=== PATIENT | female | born 1950 | race Caucasian/White ===

== ENCOUNTER 2020-07-23 16:19 | Outpatient (CLI) | payer MEDICARE, SELFPAY ==
--- NOTE | ~2020-07-23 | US_ITS ---
EXAMINATION: US right upper quadrant DATE: 07/23/2020 17:21 INDICATION: Right upper quadrant pain TECHNIQUE: Multiple grayscale and Doppler ultrasound images of the abdomen were obtained. COMPARISON: 10/21/2012 FINDINGS: The head and body of the pancreas are normal. The pancreatic tail is obscured by bowel gas. The liver is normal with normal echogenicity and echotexture. No surface nodularity. Normal hepatope avila flow in the main portal vein. The gallbladder is normal with no abnormal wall thickening, pericho lecystic fluid or stones. The normal common bile duct measures 5 mm. There was no sonographic Morton sign. IMPRESSION: 1. Normal sonographic study of the gallbladder. Reviewed, dictated and finalized at location A. ION EXAMINER
== END 2020-07-23 16:20 | disposition home or self-care (01) ==
LOC: CHSLAB 16:23
PROVIDERS: PCP Internal Medicine; Visit Provider Internal Medicine
DX: R10.11 Right upper quadrant pain (principal)
CPT/HCPCS: 76705

== ENCOUNTER 2020-07-26 10:46 | Outpatient (CLI) | payer MEDICARE, SELFPAY ==
--- NOTE | ~2020-07-26 | NM_ITS ---
EXAMINATION: NM hepatobiliary w pharm DATE: 07/26/2020 13:17 INDICATION: Epigastric abdominal pain. COMPARISON: Chest on 07/23/2020 TECHNIQUE: 6 mCi Tc-99m mebrofenin (Choletec) was administered intravenously. Scintigraphic images o f the abdomen were obtained for one hour. Then, 1.5 mcg sincalide (Kinevac) IV was administered, and imaging was continued for 30 minutes. FINDINGS: There is normal clearance of radiotracer from the blood pool. There is homogeneous tracer u ptake by the liver. Activity progresses to the bowel and gallbladder. Gallbladder ejection fraction (GBEF) was 92%. Note that most patients with gallbladder dysfunction have GBEF < 35%, which overlaps with the broad normal range of 10-90%. IMPRESSION: 1. Normal hepatobiliary scintigraphy. Reviewed, dictated and finalized at location B. CTOR OF INFECTION PREVENTION
== END 2020-07-26 10:47 | disposition home or self-care (01) ==
LOC: CHSIMG 10:47
PROVIDERS: PCP Internal Medicine; Visit Provider Internal Medicine
DX: R10.11 Right upper quadrant pain (principal)
CPT/HCPCS: 78227; A9537; J2805

== ENCOUNTER → 2020-08-13 01:15 | Outpatient (CLI) | payer MEDICARE, SELFPAY ==
[2020-08-15 18:18] LABS: SARS-CoV-2 RNA PCR Negative
== END ==
PROVIDERS: PCP Internal Medicine; Visit Provider Surgery
DX: Z01.812 Encounter for preprocedural laboratory examination (principal); Z20.822 Contact with and (suspected) exposure to COVID-19
CPT/HCPCS: C9803; U0003; U0005

== ENCOUNTER 2020-08-16 00:21 | Day surgery (SDC) | payer MEDICARE, SELFPAY ==
[2020-07-31 14:24] VITALS: BMI 28.8
--- NOTE | 2020-08-15 11:12 | WPDANESEPPF ---
Anes - Initial Pre Proc Eval Procedure: Operation Date: 08/16/20 07:30 Proposed Procedures p Esophagogastroduodenoscopy - Dyllan Gaines DO Date/Time: 08/15/20 11:12 Surgeon: Dyllan Gaines DO Pre Op Diagnosis: Right Upper Quadrant Pain Patient Data Age: 69 Gender: F Height: 1.63 m Weight: 76 kg Allergies Allergy/AdvReac Type Severity Reaction Status Date / Time No Known Allergies Allergy Verified 08/16/20 06:24 Home Medications Medication Instructions Recorded Confirmed Type Immune Plus 1 wafer PO DAILY 07/31/20 07/31/20 History aspirin [Adult Low Dose Aspirin] 81 mg PO DAILY 07/31/20 07/31/20 History cholecalciferol (vitamin D3) 125 mcg PO DAILY 07/31/20 07/31/20 History [Vitamin D3] cyanocobalamin (vitamin B-12) 1,000 mcg PO DAILY 07/31/20 07/31/20 History [Vitamin B-12] escitalopram oxalate 10 mg PO HS 07/31/20 07/31/20 History pantoprazole 40 mg PO BID 07/31/20 07/31/20 History pravastatin 20 mg PO HS 07/31/20 07/31/20 History zolpidem 5 mg PO HS 07/31/20 07/31/20 History Patient hx anesthesia problems: none Family hx anesthesia problems: none PMFSH Past Medical History Medical History (Updated 08/15/20 @ 11:14 by Cristian Cruz MD) Anxiety Breast CA Hypercholesterolemia Social History Social History (System 07/30/20 @ 14:39 by Debby Rojo) Smoking status: Never smoker Alcohol intake: never Substance use: never Substance use type: does not use Living arrangements: with family Spiritual care concerns: No Anes - Eval Final PreProcedure Day of Procedure 08/15/20 11:12 Patient weight: overweight Heart: regular rate and rhythm Lungs: clear to auscultation and normal air movement Airway: Mallampati scale class II Neurological: alert and oriented Last oral intake: >/= 8 hours ASA classification: III Emergent: no Anesthetic plan: proceed Anesthesia type and monitoring: general GIVS Informed Consent: The patient's anesthetic plan and its attendant risks and benefits were discussed with the patient/family/POA. Questions were solicited and answers provided to the satisfaction of the patient/family/POA.
[2020-08-16 06:25] VITALS: BP 152/89; PULSE 76; RESP 20; TEMP 36.6; O2SAT 95; BMI 29.4
[2020-08-16] MEDS: LACTATED RINGERS 1,000 ML 150 ML IV CONT (06:42)
--- NOTE | 2020-08-16 07:28 | PM.IMHP ---
H&P: HPI History of Present Illness Date/Time: 08/16/20 07:28 Chief Complaint: epigastric pain Narrative: Cari Galvin is a 69 year old female who presents with epigastric pain, bloating, and belching for several years. She thought it might be her gallbladder but u/s was normal. No certain foods cause this. Review of Systems Review of Systems: All systems reviewed & are unremarkable except as noted in HPI and below Constitutional: Constitutional: Denies chills, Denies fever(s), Denies headache(s) and Denies weight loss Eyes: Eyes: Denies change in vision ENT: Denies dizziness, Denies headache(s), Denies neck mass and Denies throat swelling Cardiovascular: Cardiovascular: Denies chest pain, Denies lightheadedness and Denies dyspnea Respiratory: Respiratory: Denies cough, Denies dyspnea and Denies wheezing Gastrointestinal: Gastrointestinal: Denies abdominal pain, Denies change in bowel habits, Denies nausea and Denies vomiting Genitourinary: Genitourinary: Denies hematuria and Denies dysuria Musculoskeletal: Musculoskeletal: Reports as per HPI Integumentary/Breasts: Skin/Breast: Reports as per HPI Neurologic: Denies dizziness and Denies headache(s) Allergic/Immunologic: Allergic/Immunologic: Denies throat swelling and Denies wheezing PMFSH Past Medical History Medical History Anxiety Breast CA Hypercholesterolemia Social History Social History Smoking status: Never smoker Alcohol intake: never Substance use: never Substance use type: does not use Living arrangements: with family Spiritual care concerns: No Meds Home Medications and Allergies Home Medications Medication Instructions Recorded Confirmed Type Immune Plus 1 wafer PO DAILY 07/31/20 07/31/20 History aspirin [Adult Low Dose Aspirin] 81 mg PO DAILY 07/31/20 07/31/20 History cholecalciferol (vitamin D3) 125 mcg PO DAILY 07/31/20 07/31/20 History [Vitamin D3] cyanocobalamin (vitamin B-12) 1,000 mcg PO DAILY 07/31/20 07/31/20 History [Vitamin B-12] escitalopram oxalate 10 mg PO HS 07/31/20 07/31/20 History pantoprazole 40 mg PO BID 07/31/20 07/31/20 History pravastatin 20 mg PO HS 07/31/20 07/31/20 History zolpidem 5 mg PO HS 07/31/20 07/31/20 History Allergies Allergy/AdvReac Type Severity Reaction Status Date / Time No Known Allergies Allergy Verified 08/16/20 06:24 Vital Signs Vital Signs - 24 hr 08/16/20 06:25 Temperature 36.6 C Pulse Rate 76 Respiratory Rate 20 Blood Pressure 152/89 H Pulse Oximetry 95 Exam Const: General: no acute distress and alert Orientation/consciousness: patient oriented x3 HENMT: Head: normocephalic and atraumatic Ears: hearing grossly normal bilaterally General nose exam: Normal nares present Mouth: Yes Normal oral and palatal mucosa present Eyes: Periorbital: periorbital findings normal Sclera: sclerae normal EOM: EOMs intact bilaterally Neck: Neck: normal visual inspection, no lymphadenopathy and trachea midline Chest: Chest palpation & inspection: normal inspection of the chest Resp: Effort & Inspection: normal respiratory effort Auscultation: clear to auscultation bilaterally Cardio: Jugular venous distension: no JVD Rate: regular rate Rhythm: regular rhythm Heart sounds: S1 normal heart sound present and S2 normal heart sound present Peripheral pulses: Peripheral pulses 2+ throughout GI: Inspection: normal to inspection GI Palp: Yes Soft to palpation, No Tenderness to palpation present (GI), No Guarding due to palpation present (GI) and No Rebound tenderness present Percussion: Yes normal to percussion Auscultation: normal bowel sounds : General: Yes no CVA tenderness Back/Spine/Pelvis: Back: no CVA tenderness Neuro: General: patient oriented x3, no focal motor deficits and CN's II-XI intact bilaterally Cognition (Neuro):
[2020-08-16 07:48] VITALS: BP 143/89; PULSE 70; RESP 20; O2SAT 96
[2020-08-16 07:58] VITALS: BP 132/81; PULSE 66; RESP 17; O2SAT 95
[2020-08-16 08:08] VITALS: BP 142/88; PULSE 68; RESP 20; O2SAT 95
== END 2020-08-16 08:15 | disposition home or self-care (01) ==
PROVIDERS: PCP Internal Medicine; Visit Provider Surgery
PROC: 0DJ08ZZ Inspection of Upper Intestinal Tract, Via Natural or Artificial Opening Endoscopic (ICD-10-PCS; CPT 43235; principal; 2020-08-16 07:30)
DX: R10.13 Epigastric pain (principal); K44.9 Diaphragmatic hernia without obstruction or gangrene; K31.7 Polyp of stomach and duodenum; E78.00 Pure hypercholesterolemia, unspecified; F41.9 Anxiety disorder, unspecified; Z85.3 Personal history of malignant neoplasm of breast; Z79.82 Long term (current) use of aspirin
CPT/HCPCS: 43239; 87081; 88305; 88342; C9803; J2704; J7120; U0003; U0005

== ENCOUNTER 2021-03-14 14:48 | Outpatient (CLI) | payer MEDICARE, SELFPAY ==
[2021-03-14 15:26] LABS: SARS-CoV-2 Ag Negative (Negative)
== END 2021-03-14 14:49 | disposition home or self-care (01) ==
LOC: CHSLAB 14:51
PROVIDERS: PCP Internal Medicine; Visit Provider Internal Medicine
DX: J02.9 Acute pharyngitis, unspecified (principal); R05 Cough; R53.83 Other fatigue; Z20.822 Contact with and (suspected) exposure to COVID-19
CPT/HCPCS: 87081; 87426; 87880; C9803

== ENCOUNTER 2021-08-13 14:39 | Outpatient (CLI) | payer MEDICARE, SELFPAY ==
--- NOTE | ~2021-08-13 | XR_ITS ---
EXAMINATION: XR chest 2V DATE: 08/13/2021 15:18 INDICATION: Cough and shortness of breath. Tachycardia. Recent COVID-19 pneumonia. TECHNIQUE: Frontal and lateral views of the chest were obtained. COMPARISON: None. FINDINGS: There are mild airspace opacities in left lower lung zone. A calcified right lung nodule is consistent with old granulomatous disease. There is mild scarring at the lung apices. No pleural eff usion or pneumothorax. The heart size is normal. IMPRESSION: 1. Mild airspace opacities in left lower lung zone, consistent with atelectasis/scarring versus pneum onia. Mild scarring at the lung apices. Reviewed, dictated and finalized at location A. ER FURNACE IMPRESSION: 1. Mild airspace opacities in left lower lung zone, consistent with atelectasis /scarring versus pneumonia. Mild scarring at the lung apices.
[2021-08-13 15:10] LABS: Basophils Absolute Auto 0.04 K/mm3 (0.00-0.10); Basophils Percent Auto 0.7 % (0.0-1.0); Eosinophils Absolute Auto 0.34 K/mm3 (0.02-0.50); Eosinophils Percent Auto 6.2 % (1.0-6.0); Hematocrit 42.1 % (35.0-42.0); Hemoglobin 13.8 g/dL (11.7-13.8); Immature Granulocyte Absolute 0.04 K/mm3 (0.00-0.00); Immature Granulocyte Percent A 0.7 % (0.0-0.0); Lymphocytes Absolute Auto 1.99 K/mm3 (1.10-4.50); Lymphocytes Percent Auto 36.3 % (18.0-42.0); Mean Corpuscular HGB Conc 32.8 g/dL (32.0-36.0); Mean Corpuscular Hemoglobin 29.4 pg (27.0-31.0); Mean Corpuscular Volume 89.6 fL (78.0-102.0); Mean Platelet Volume 9.8 fl (9.2-11.8); Monocytes Absolute Auto 0.46 K/mm3 (0.10-0.90); Monocytes Percent Auto 8.4 % (2.0-11.0); Neutrophils Absolute Auto 2.6 K/mm3 (1.7-7.2); Neutrophils Percent Auto 47.7 % (50.0-70.0); Platelet Count Result 216 K/mm3 (150-420); Red Cell Distribution Width 12.8 % (11.6-14.4); White Blood Count 5.5 K/mm3 (4.8-10.8)
[2021-08-13 16:02] LABS: Alanine Aminotransferase 26 U/L (14-59); Albumin Level 4.1 g/dL (3.4-5.0); Alkaline Phosphatase 74 U/L (46-116); Anion Gap 12 mmol/L (8-16); Aspartate Amino Transferase 19 U/L (15-37); Bilirubin,Total 0.3 mg/dL (0.00-1.00); Blood Urea Nitrogen 15 mg/dL (7-18); Calcium 9.3 mg/dL (8.5-10.1); Carbon Dioxide 27 mmol/L (21-32); Chloride 102 mmol/L (98-108); Estimated Glomerular Filt Rate > 60; Free T3 2.52 pg/mL (2.18-3.98); Free T4 Free Thyroxine 0.73 ng/dL (0.76-1.46); Glucose 86 mg/dL (70-99); Osmolality Calculated 291 mOsm/kg (285-295); Sodium 141 mmol/L (136-145); Thyroid Stimulating Hormone 3.44 uIU/mL (0.36-3.74); Total Protein 7.5 g/dL (6.4-8.2)
== END 2021-08-13 14:40 | disposition home or self-care (01) ==
LOC: CHSLAB 14:45
PROVIDERS: PCP Internal Medicine; Visit Provider Internal Medicine
DX: R00.0 Tachycardia, unspecified (principal); I65.23 Occlusion and stenosis of bilateral carotid arteries; R05.9 Cough, unspecified; R53.83 Other fatigue
CPT/HCPCS: 36415; 71046; 80053; 84439; 84443; 84481; 85025

== ENCOUNTER 2021-08-14 13:13 | Outpatient (CLI) | payer MEDICARE, SELFPAY ==
--- NOTE | ~2021-08-14 | US_ITS ---
EXAMINATION: US carotid duplex BI EXAM DATE: 08/14/2021 13:33 INDICATION: Carotid Stenosis . TECHNIQUE: Grayscale, color and pulsed Doppler images of the cervical carotid arteries were obtained . The degree of vessel stenosis is placed in one of the following categories: normal, <50% stenosis, 50-69% stenosis, >=70% stenosis but less than near-occlusion, near-occlusion, or occlusion. Note that percent stenosis relative to normal distal artery lumen diameter is indirectly measured from velocit y measurements as described by Melquiades, et al. Radiology 2003; [id number]. There is no prior study fo r comparison. FINDINGS: RIGHT SIDE: Right common carotid artery peak systolic velocity (PSV in cm/s): 83 Right bulb/internal carotid artery peak systolic velocity (PSV in cm/s): 92 Right internal carotid artery end diastolic velocity (EDV in cm/s): 32 Right ICA/CCA peak systolic ratio: 1.1 Right external carotid artery peak systolic velocity (PSV in cm/s): 83 Right vertebral artery antegrade flow: yes There is no focal plaque identified. LEFT SIDE: Left common carotid artery peak systolic velocity (PSV in cm/s): 87 Left bulb/internal carotid artery peak systolic velocity (PSV in cm/s): 71 Left internal carotid artery end diastolic velocity (EDV in cm/s): 26 Left ICA/CCA peak systolic ratio: 0.8 Left external carotid artery peak systolic velocity (PSV in cm/s): 102 Left vertebral artery antegrade flow: yes There is mild carotid bulb plaque. Velocity and Doppler waveforms in the common and internal carotid arteries is normal. IMPRESSION: 1. Normal right internal carotid artery. 2. Less than 50 percent stenosis in the left internal carotid artery. Reviewed, dictated and finalized at location B. FLEET MANAGER
== END 2021-08-14 13:14 | disposition home or self-care (01) ==
LOC: CHSIMG 13:16
PROVIDERS: PCP Internal Medicine; Visit Provider Internal Medicine
DX: I65.23 Occlusion and stenosis of bilateral carotid arteries (principal)
CPT/HCPCS: 93880

== ENCOUNTER 2021-09-10 11:16 | Outpatient (CLI) | payer MEDICARE, SELFPAY ==
--- NOTE | ~2021-09-10 | XR_ITS ---
EXAMINATION: XR chest 2V DATE: 09/10/2021 11:29 INDICATION: Cough. Upper chest pain. TECHNIQUE: Frontal and lateral views of the chest were obtained. COMPARISON: Chest 2 views 08/13/2021 FINDINGS: There is mild scarring at the lung apices. There is a 10 mm nodule in right upper lobe. No pleural effusion or pneumothorax. The heart size is normal. IMPRESSION: 1. 10 mm nodule in right upper lobe, which may be granulomatous disease or malignancy. Noncontrast est CT is recommended. Reviewed, dictated and finalized at location A. ERCIAL HOUSEKEEPER IMPRESSION: 1. 10 mm nodule in right upper lobe, which may be granulomatous disease or john paul gnancy. Noncontrast chest CT is recommended.
== END 2021-09-10 11:17 | disposition home or self-care (01) ==
LOC: CHSIMG 11:17
PROVIDERS: PCP Internal Medicine; Visit Provider Internal Medicine
DX: R05.9 Cough, unspecified (principal); Z86.16 Personal history of COVID-19
CPT/HCPCS: 71046

== ENCOUNTER 2021-09-16 10:47 | Outpatient (CLI) | payer MEDICARE, SELFPAY ==
--- NOTE | ~2021-09-16 | CT_ITS ---
EXAMINATION:CT diagnostic chest wo con DATE: 09/16/2021 11:10 INDICATION: Pulmonary nodule. Abnormal chest radiograph. TECHNIQUE: Computed tomography (CT) of the chest was performed without intravenous contrast. Automate d exposure control and iterative reconstruction technique were employed. The dose-length product (DLP ) was 115.88 mGy-cm. COMPARISON: Chest 2 views 09/10/2021 FINDINGS: Calcified left lung nodules and calcified left hilar lymph nodes are consistent with old gr anulomatous disease. There is mild peripheral scarring in the upper lobes. There is a 2.6 x 0.7 x 0.8 cm part-solid peripheral nodule in right upper lobe correlating with the chest radiograph abnormalit y. No pleural effusion. The heart size is normal. There are coronary artery calcifications. No perica rdial effusion. Calcifications in the liver and spleen are consistent with old granulomatous disease. There is a 2.2 cm cyst in left kidney. There is moderate thoracic spondylosis. IMPRESSION: 1. Peripheral part-solid nodule in right lung upper lobe correlating with the chest radiograph abnorm ality, which may be scarring or less likely malignancy. Consider PET/CT or 3-month follow-up noncontr ast low-dose chest CT. Reviewed, dictated and finalized at location A. IMPRESSION: 1. Peripheral part-solid nodule in right lung upper lobe correlating with the c hest radiograph abnormality, which may be scarring or less likely malignancy. C onsider PET/CT or 3-month follow-up noncontrast low-dose chest CT.
== END 2021-09-16 10:48 | disposition home or self-care (01) ==
LOC: CHSIMG 10:48
PROVIDERS: PCP Internal Medicine; Visit Provider Internal Medicine
DX: R91.1 Solitary pulmonary nodule (principal)
CPT/HCPCS: 71250

== ENCOUNTER 2021-12-05 10:31 | Outpatient (CLI) | payer MEDICARE, SELFPAY ==
--- NOTE | ~2021-12-05 | CT_ITS ---
EXAMINATION: CT diagnostic chest wo con DATE: 12/05/2021 10:49 INDICATION: Lung nodule TECHNIQUE: Computed tomography (CT) of the chest was performed without intravenous contrast. The dose -length product (DLP) was 137.89 mGy-cm. Automated exposure control and iterative reconstruction [employer] were employed. COMPARISON: 09/16/2021 FINDINGS: The previously described pleural-based, part solid nodule of the right upper lobe is stable . No new pulmonary nodules are identified. The lungs are free of acute opacities. There is no pleural effusion or pneumothorax. No pathologically enlarged thoracic lymph nodes are identified. The heart size is normal. Calcified coronary artery atherosclerosis is noted. Calcified pulmonary nodules and c alcified left hilar lymph nodes are consistent with old granulomatous disease. Cysts of the partially imaged left kidney measure up to 3.2 cm. There is moderate thoracic spondylosis. IMPRESSION: 1. Stable pleural-based, part solid nodule of the right upper lobe, most consistent with scarring. Reviewed, dictated and finalized at location F. IMPRESSION: 1. Stable pleural-based, part solid nodule of the right upper lobe, most consis tent with scarring.
== END 2021-12-05 10:32 | disposition home or self-care (01) ==
LOC: CHSIMG 10:32
PROVIDERS: PCP Internal Medicine; Visit Provider Internal Medicine
DX: R91.1 Solitary pulmonary nodule (principal)
CPT/HCPCS: 71250

== ENCOUNTER 2022-07-17 12:41 | Outpatient (CLI) | payer MEDICARE, SELFPAY ==
--- NOTE | ~2022-07-17 | CT_ITS ---
EXAMINATION: CT diagnostic chest wo con DATE: 07/17/2022 13:17 INDICATION: Pulmonary nodule TECHNIQUE: Computed tomography (CT) of the chest was performed without intravenous contrast. The dose -length product (DLP) was 200.19 mGy-cm. Automated exposure control and iterative reconstruction tech nique were employed. COMPARISON: 12/05/2021, 09/16/2021 FINDINGS: Again seen is a stable, pleural-based, part solid nodule of the right upper lobe. No interv al change is identified. There are no new pulmonary nodules. The lungs are free of acute opacities. N o pleural effusion or pneumothorax. No pathologically enlarged thoracic lymph nodes are identified. T he heart size is normal. Calcified pulmonary nodules and calcified left hilar lymph nodes are consist ent with old granulomatous disease. There is calcified coronary artery atherosclerosis. Punctate calc ifications in an otherwise normal spleen likely represent healed granulomatous disease. There is mode rate thoracic spondylosis. IMPRESSION: 1. Persistent stable, pleural-based, part solid nodule of the right upper lobe, most consistent with scarring. No new findings. Reviewed, dictated and finalized at location L. TANKER DRIVER
== END 2022-07-17 12:42 | disposition home or self-care (01) ==
LOC: CHSIMG 12:42
PROVIDERS: PCP Internal Medicine; Visit Provider Internal Medicine
DX: R91.1 Solitary pulmonary nodule (principal)
CPT/HCPCS: 71250

== ENCOUNTER 2022-08-22 10:13 | Outpatient (CLI) | payer MEDICARE, SELFPAY ==
--- NOTE | ~2022-08-22 | DEXA_ITS ---
Bone Density Report Name: ROBERT VERONICA Age: 71 Sex: Female Ethnicity: White Date of : 1950 Indication: postmenopausal; screening for osteoporosis; parental hip fracture; cancer; hysterectomy; Referring Provider: Jodie Caruso Study: Bone densitometry was performed. Exam Date: August 22, 2022 Accession number: [id number] Bone Density: Region BMD T-score Z-score Classification AP Spine(L1-L4) 0.888 -1.4 0.7 Osteopenia Femoral Neck (Left) 0.837 -0.1 1.7 Normal Total Hip (Left) 0.961 0.2 1.7 Normal Femoral Neck (Right) 0.831 -0.2 1.6 Normal Total Hip (Right) 0.964 0.2 1.7 Normal Femoral Neck Mean 0.834 -0.1 1.7 Normal Total Hip Mean 0.963 0.2 1.7 Normal World Health Organization criteria for BMD impression classify patients as: Normal (T-score at or above -1.0), Osteopenia (T-score between -1.0 and -2.5), or Osteoporosis (T-score at or below -2.5). 10-year Fracture Risk(1): Major Osteoporotic Fracture 11% Hip Fracture 0.8% Reported Risk Factors: [place] (), Neck BMD=0.831, BMI=31.5, parental fracture (1) FRAX(R) Version 3.08. Fracture probability calculated for an untreated patient. Fracture probability may be lower if the patient has received treatment. Clinical Information Provided by Patient: Parent has had a hip fracture Has used the following medications: Vitamin D, multivitimin Has the following medical conditions: Cancer, Hysterectomy Menopause Age: 49 No regular weight bearing exercise Drinks caffeinated beverages Onset of menses at age 14 Number of children 2 Impression: The patient has low bone mass, based on the Total Spine T-score. The patient has risk factors, including: parental hip fracture. Discussion: BONE DENSITY IS LOW AT ONE OR MORE SKELETAL SITES. This patient's lowest T-score is low at one or more skeletal sites. It meets the World Health Organization's (WHO) criteria for ?low bone mass? (T-score between -1.0 and -2.5). The patient's 10-year risk of fracture as calculated by FRAX is less than the threshold where pharmacological therapy is recommended by the National Osteoporosis Foundation (NOF). However, all treatment decisions require clinical judgment and consideration of individual patient factors, including patient preferences, comorbidities, previous drug use, risk factors not captured in the FRAX model (e.g., frailty, falls, vitamin D deficiency, increased bone turnover, interval significant decline in bone density) and possible under or overestimation of fracture risk by FRAX. The patient should follow a healthful lifestyle (good nutrition with adequate calcium and vitamin D, and appropriate weight-bearing exercise). Follow-Up: Consider repeating this study in 2 to 3 years to reassess this patient
== END 2022-08-22 10:14 | disposition home or self-care (01) ==
LOC: CHSIMG 10:14
PROVIDERS: PCP Internal Medicine; Visit Provider Internal Medicine
DX: Z78.0 Asymptomatic menopausal state (principal); M85.88 Other specified disorders of bone density and structure, other site
CPT/HCPCS: 77080

== ENCOUNTER 2023-08-11 08:21 | Outpatient (CLI) | payer MEDICARE, SELFPAY ==
--- NOTE | ~2023-08-11 | US_ITS ---
EXAMINATION: US carotid duplex BI DATE: 08/11/2023 08:53 INDICATION: Bilateral carotid artery stenosis TECHNIQUE: Grayscale, color Doppler, and pulsed Doppler images of the cervical carotid arteries were obtained. The degree of vessel stenosis is placed in one of the following categories: normal, <50%, 5 0-69%, >=70% but less than near-occlusion, near-occlusion, or total occlusion. Note that percent sten osis relative to normal distal artery lumen diameter is indirectly measured from velocity measurement s as described by Melquiades, et al. Radiology 2003; [id number]. COMPARISON: None. FINDINGS: RIGHT: The right common carotid artery (CCA) peak systolic velocity (PSV) is 118 cm/s. The right internal ca rotid artery (ICA) PSV is 94 cm/s. The right ICA end-diastolic velocity (EDV) is 25 cm/s. The right I CA/CCA PSV ratio is 0.8. Grayscale and color Doppler images yield an estimate of <50% diameter reduct ion from plaque in the ICA. The external carotid artery (ECA) PSV is 97 cm/s. There is antegrade flow in the right vertebral artery. LEFT: The left CCA PSV is 116 cm/s. The left ICA PSV is 127 cm/s. The left ICA EDV is 44 cm/s. The left ICA /CCA PSV ratio is 1.1. Grayscale and color Doppler images including secondary Doppler criteria yield an estimate of <50% diameter reduction from plaque in the ICA. The ECA PSV is 82 cm/s. There is anteg rade flow in the left vertebral artery. IMPRESSION: 1. <50% stenosis in the right internal carotid artery. 2. <50% stenosis in the left internal carotid artery. Reviewed, dictated and finalized at location A. AND CROWN PRESSER
== END 2023-08-11 08:22 | disposition home or self-care (01) ==
LOC: CHSIMG 08:23
PROVIDERS: PCP Internal Medicine; Visit Provider Internal Medicine
DX: I65.23 Occlusion and stenosis of bilateral carotid arteries (principal)
CPT/HCPCS: 93880

== ENCOUNTER 2024-08-16 05:10 | Observation (INO) | payer MEDICARE, SELFPAY ==
--- NOTE | ~2024-08-16 | CT_ITS ---
Noncontrast CT scan of the cervical spine Technique: Multiple contiguous axial [address] images of the cervical spine were obtained and rec onstructed in 2D sagittal and coronal planes on the acquisition scanner. Dose reduction technique was used on this scan by utilizing automated exposure control, adjustment of the mA and/or kV according to patient size. The dose-length product (DLP) was 863.95 mGy-cm. Clinical History: Pain Findings: No fractures or dislocations. There is reversal normal cervical lordosis. There is severe degenerative disc narrowing at C5-C6 and C6-C7. There is mild degenerative disc narrowing the upper c ervical spine. There is extensive facet arthropathy bilaterally. There is fusion of the bilateral C2- C3 facet joints. There is bilateral neural foraminal narrowing at C3-C4. There is probable bilateral neural foraminal narrowing at C4-C5. There is bilateral neural foraminal narrowing at C5-C6 and C6-C7 . No prevertebral soft tissue swelling. Impression: No fracture or subluxation of the cervical spine. Moderate degenerative spondylosis, as above. Reviewed, dictated and finalized at [facility]. HT ANALYST Impression: No fracture or subluxation of the cervical spine. Moderate degenerative spondylosis, as above.
--- NOTE | ~2024-08-16 | CT_ITS ---
EXAMINATION: CT brain wo con DATE: 08/17/2024 09:03 INDICATION: Headache. Dizziness. TECHNIQUE: Computed tomography (CT) of the head was performed without intravenous contrast. The mA wa s adjusted according to patient size. Iterative reconstruction technique was employed. The dose-lengt h product was 605.33 mGy-cm. COMPARISON: Head CT 08/16/2024 FINDINGS: There is no intracranial hemorrhage, acute infarction, or abnormal intracranial mass lesion . The ventricles are normal in size. There is a left posterior scalp hematoma. The orbits are normal. There is mild mucosal thickening in the paranasal sinuses. The mastoid air cells are normal. IMPRESSION: 1. Normal brain. Reviewed, dictated and finalized at location A. WORKER IMPRESSION: 1. Normal brain.
--- NOTE | ~2024-08-16 | CT_ITS ---
Non-contrast Head CT History: Head injury Technique: Axial non-contrast imaging of the brain was performed. Dose reduction technique was used on this scan by utilizing automated exposure control and iterative reconstruction technique. The dose -length product (DLP) was 605.33 mGy-cm. Findings: There is no evidence of intracranial hemorrhage, mass lesion, or acute infarct. Brain par enchyma appears normal. The ventricles and subarachnoid spaces are normal in size. The calvarium ap pears normal. The visualized paranasal sinuses and mastoid air cells are clear. There is soft tissue swelling/hematoma in the left parietal scalp. Impression: No intracranial abnormality seen. Soft tissue swelling/hematoma in the left parietal scalp. Reviewed, dictated and finalized at [facility]. ET CLOSER Impression: No intracranial abnormality seen. Soft tissue swelling/hematoma in the left parietal scalp.
--- OUTSIDE RECORDS SUMMARY | 2024-08-16 05:14 | XMS_ITS | Clinical Summary ---
Author Organization [facility] Address [address] [place] [address] Care Team Providers Care Coal Sampler Name Role Phone Jodie Caruso MD Primary Care Provider + [phone] Montserrat Ernandez NP Unavailable [phone] Allergies No known active allergies Medications zolpidem (AMBIEN) 10 mg tabletIndicatio ns:Sleep-Onset Insomnia TAKE 1 TABLET AT BEDTIME NEEDED FOR SLEEP. Active aspirin 81 mg tablet daily. Active cyanocobalamin, vitamin B-12, 1,000 mcg tablet extended release daily. Active ascorbic acid (VITAMIN C) 500 mg tablet,chewable daily. Acti ve multivitamin tabletIndicatio ns:Vitamin Deficiency Prevention Active pravastatin (PRAVACHOL) 20 mg tablet daily. Active escitalopram (LEXAPRO) 10 mg tablet daily. Active cholecalciferol (VITAMIN D-3) 25 mcg (1,000 unit) tablet Take 1,000 Units by mouth daily Active carvediloL (COREG) 6.25 mg tablet Take 3.125 mg by mouth 2 (two) times a day with meals Active Active Problems Problem Noted Date Diagnosed Date Pulmonary nodule, right 10/01/2021 Encounter for screening for malignant neoplasm o f breast 05/19/2019 ER+ (estrogen receptor positive status) 05/12/20 18 Primary malignant neoplasm o f upper outer quadrant of female breast 05/14/2017 Osteopenia 05/14/2017 Resolved Problems Problem Noted Date Diagnosed Date Resolved Date Encounter for monitoring taylor matase inhibitor therapy 05/12/2018 05/13/2018 Surgical History Surgery Date Site/Laterality Comments APPENDECTOMY 07/06/1963 - 07/05/1964 TONSILLECTOMY 07/06/1970 - 07/05/1971 TUBAL LIGATION 07/06/1977 - 07/05/1978 TOTAL ABDOMINAL HYSTERECTOMY W/ BILATERAL SALPINGOOPHORECTOMY 07/06/2000 - 07/05/2001 found to have benign ovarian cyst BREAST LUMPECTOMY 2000 Left AXILLARY NODE DISSECTION 07/06/2000 - 07/05/2001 Left Medical History Medical History Date Comments Left Breast cancer 09/21/2000 Hypertension Primary insomnia Elevated blood pressure read ing without diagnosis of hypertension Impaired fasting glucose Vitamin D deficiency Mixed hyperlipidemia Unspecified chronic gastritis without bleeding Occlusion and stenosis of left carotid artery Solitary pulmonary nodule Dysuria Shingles 06/2020 Left flank Anxiety Covid-19 Family History Medical History Relation Name Comments COPD Father Dementia Father Diabetes type II Father Heart disease Father age 92 Asthma Mother age 32 Pneumonia Paternal Grandfather ag e 92 Heart failure Paternal Grandmother a ge 88 Relation Name Status Comments Father Mother Paternal Grandfather Paternal Grandmother Social History Tobacco Use Types Packs/Day Years Used Date Smoking Tobacco: Never Smokeless Tobacco: Never Alcohol Use Standard Drinks/Week Comments Yes 6 (1 standard drink = 0.6 oz pur e alcohol) per week Personal Safety Answer Date Recorded Getting School Help Needed Not on file 06/20 Comments Unknown Sex and Gender Information Value Date Recorded Sex Assigned at Not on file 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 She experienced a natural menopause in 2000. She has never used oral contraceptives, hormone replacement therapy, or fertility medications. 2, para 2. She has 2 sons, first term at age 20. She did not breast feed. She has not had a Pap smear in several years. Last Filed Vital Signs Vital Sign Reading Time Taken Comments Blood Pressure 141/85 10/02/2021 1:13 PM CDT Pulse 73 10/02/2021 1:13 PM CDT Temperature 36.1 C (96.9 F) 10/02/2021 1:13 PM CDT Respiratory Rate 18 10/02/2021 1:13 PM CDT Oxygen Saturation 97% 10/02/2021 1:13 PM CDT room air Inhaled Oxygen Concentration - - Weight 79.8 kg (176 lb) 10/02/2021 1:13 PM CDT Height 162.6 cm (5' 4 ) 10/02/2021 1:13 PM CDT Body Mass Index 30.21 10/02/2021 1:13 PM CDT Plan of Treatment Health Maintenance Due Date Last Done Comments Colon Cancer Screening-Colonoscopy 1950 Depression Screening 1952 Fall Risk Assessment 1950 Hepatitis C Screening 1950 Osteoporosis Screening-Bone Density Scan 1952 Hepatitis B Screening 1970 Zoster Vaccine (2 of 3) 05/24/2015 03/29/2015 Well Visit 65+ 2017 DTaP/Tdap/Td Vaccine (2 - Td or Tdap) 05/16/2023 05/16/2013 Influenza Vaccine (#1) 2024 9, 05/07/2018, 05/13/2017, Additional history exists Breast Cancer Screening-Mammogram 10/20/2024 10/21/2023, 10/06/2022, 09/24/2021, Additional history exists Pneumococcal vaccine 65+ Completed 08/05/2018, 01/04 Procedures Procedure Name Priority Date/Time Associated Diagnosis Comments SCREENING MAMMOGRAM BILATERAL W JEVON Schedule Routine, Read Routine (OP Routine) 10/21/2023 10:22 AM CDT Screening mammogram, encounter for from Last 3 Months or Most Recently Relevant to Health Maintenance Results * Screening Mammogram Bilateral W Jevon (10/21/2023 10:22 AM CDT) Anatomical Region Laterality Modality Breast Bilateral Mammography Narrative 10/22/2023 11:43 AM CDT Mammogram Technique: Bilateral Digital Breast Tomosynthesis, Bilateral C-view 2D Screening mammogram. Views obtained: bilateral craniocaudal and bilateral mediolateral oblique. Computer Aided Detection was performed. Mammogram Findings: The present examination has been compared to prior imaging studies performed at [facility] on 08/10/2020, 09/24/2021 and 10/06/2022. There are scattered areas of fibroglandular density. There are post breast conservation therapy changes in the left breast. Impression: Post breast conservation therapy changes in the left breast are benign. Annual screening mammography is recommended. OVERALL FINAL ASSESSMENT: BI-RADS CATEGORY 2: Benign. Procedure Note Zulema Lehman MD - 10/22/2023 Mammogram Technique: Bilateral Digital Breast Tomosynthesis, Bilateral C-view 2D Screening mammogram. Views obtained: bilateral craniocaudal and bilateral mediolateral oblique. Computer Aided Detection was performed. Mammogram Findings: The present examination has been compared to prior imaging studies performed at [facility] on 08/10/2020, 09/24/2021 and 10/06/2022. There are scattered areas of fibroglandular density. There are post breast conservation therapy changes in the left breast. Impression: Post breast conservation therapy changes in the left breast are benign. Annual screening mammography is recommended. OVERALL FINAL ASSESSMENT: BI-RADS CATEGORY 2: Benign. us Self Screening Mammogram IMG MAMMO PROCEDURES Fi nal Result from Last 3 Months or Most Recently Relevant to Health Maintenance Insurance [facility] MEDICARE Address: [facility] [id number] [place] [address] A[employer] MEDICARE AETNA MEDICARE Care Teams Coal Sampler Relationship Specialty Start Date End Date Jodie Caruso MD [address] [place] [address] PCP - General Internal Medicine 11/11/17 Montserrat Ernandez NP [id number] [facility] IM MEDICAL ONCOLOGY, [address] [place] [address] Nurse Practitioner Medical Oncology 08/10/20
--- OUTSIDE RECORDS SUMMARY | 2024-08-16 05:14 | XMS_ITS | Referral Summary ---
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 There are [...] compared to prior imaging studies performed at [facility] on 08/10/2020, 09/24/2021 and 10/06/2022. There are [...] Most Recently Relevant to Health Maintenance Insurance T MEDICARE T MEDICARE Care Teams Leather Belt Shaper Relationship Specialty Start Date End Date Jodie Caruso MD [address] [place] [address] PCP - General Internal Medicine 11/11/17 Montserrat Ernandez NP [address] [facility] IM MEDICAL ONCOLOGY, [address] [place] [address] Nurse Practitioner Medical Oncology 08/10/20
[2024-08-16] MEDS: ONDANSETRON INJ 4 MG/2 ML VIAL IV PUSH ×2 (05:15→14:58)
[2024-08-16 05:17] VITALS: BP 171/85; PULSE 82; RESP 20; TEMP 36.4; O2SAT 98
--- NOTE | 2024-08-16 05:18 | ED_ITS ---
HPI - General Adult General Chief complaint: Head Injury Stated complaint: fall Time Seen by Provider: 08/16/24 05:16 History of Present Illness HPI narrative: Cari Gonzalez is a 73F with a PMH of anxiety, HTN and HLD that presented to the ED after a fall. She fell after the [place], about 30 hours ago when her said she tripped fell and hit the back of her head. She was reportedly out for 10 minutes then went to bed. She woke up with a severe headache and has been vomiting since. No blood thinners. Related Data Home Medications ?Medication ?Instructions ?Recorded ?Confirmed ?Last Taken ?Type Immune Plus 1 wafer PO DAILY 07/31/20 07/31/20 08/15/20 History aspirin 81 mg tablet 81 mg PO DAILY 07/31/20 07/31/20 08/15/20 History cholecalciferol (vitamin D3) 125 125 mcg PO DAILY 07/31/20 07/31/20 08/15/20 History mcg (5,000 unit) tablet (Vitamin D3) cyanocobalamin (vitamin B-12) 1,000 mcg PO DAILY 07/31/20 07/31/20 08/15/20 History 1,000 mcg tablet (Vitamin B-12) escitalopram oxalate 10 mg tablet 10 mg PO HS 07/31/20 07/31/20 08/15/20 History pantoprazole 40 mg tablet,delayed 40 mg PO BID 07/31/20 07/31/20 08/15/20 History release pravastatin 20 mg tablet 20 mg PO HS 07/31/20 07/31/20 08/15/20 History zolpidem 10 mg tablet 5 mg PO HS 07/31/20 07/31/20 08/15/20 History Allergies Allergy/AdvReac Type Severity Reaction Status Date / Time No Known Allergies Allergy Verified 08/16/20 06:24 Review of Systems 2 Review of Systems: All systems reviewed & are unremarkable except as noted in HPI and below PMFSH Past Medical History Medical History Breast CA Anxiety Hypercholesterolemia Social History Social History Smoking status: Never smoker Alcohol intake: never Substance use: never Substance use type: does not use Living arrangements: with family Spiritual care concerns: No Exam 2 Const: General: cooperative, no acute distress, well developed, alert, awake and Physically active Orientation/consciousness: oriented to person, oriented to place and oriented to time Other: brought in by wheelchair HENMT: Head: normal to inspection, normocephalic and atraumatic Ears: h earing grossly normal bilaterally and external ears normal Face/Nose/Sinus: N ormal external nose present Eyes: General: appearance normal, both eyes and all related structures P eriorbital: periorbital findings normal Sclera: sclerae normal Pupils: E qual, round and reactive pupils present Neck: Neck: normal visual inspection Chest: Chest palpation & inspection: normal inspection of the chest Resp: Effort & Inspection: normal respiratory effort, able to speak in complete sentences and no respiratory distress Auscultation: clear to auscultation bilaterally Cardio: Jugular venous distension: no JVD Rate: regular rate Rhythm: r egular rhythm GI: Inspection: normal to inspection GI Palp: Yes Soft to palpation A uscultation: normal bowel sounds Other: Dry heaving in the bed Skin: General skin exam: normal color and no rashes or lesions noted Neuro: General: oriented to person, oriented to place and oriented to time Cranial nerves: Yes Equal, round and reactive pupils present Other: speaking in complete sentences Extrem: General: normal to inspection Course Course Emergency Course: Given Zofran and fentanyl. Ordered CT head and cervical spine as well as labs. Labs showed mildly elevated Hgb and Cr. Normal troponin EKG showed NSR with a rate of 73, normal axis and no ST elevation/depression Non-contrast Head CT History: Head injury Technique: Axial non-contrast imaging of the brain was performed. Dose reduction technique was used on this scan by utilizing automated exposure control and iterative reconstruction technique. The dose-length product (DLP) was 605.33 mGy-cm. Findings: There is no evidence of intracranial hemorrhage, mass lesion, or acute infarct. Brain parenchyma appears normal. The ventricles and subarachnoid spaces are normal in size. The calvarium appears normal. The visualized paranasal sinuses and mastoid air cells are clear. There is soft tissue swelling/hematoma in the left parietal scalp. Impression: No intracranial abnormality seen. Soft tissue swelling/hematoma in the left parietal scalp. Noncontrast CT scan of the cervical spine Technique: Multiple contiguous axial [address] images of the cervical spine were obtained and reconstructed in 2D sagittal and coronal planes on the acquisition scanner. Dose reduction technique was used on this scan by utilizing automated exposure control, adjustment of the mA and/or kV according to patient size. The dose-length product (DLP) was 863.95 mGy-cm. Clinical History: Pain Findings: No fractures or dislocations. There is reversal normal cervical lordosis. There is severe degenerative disc narrowing at C5-C6 and C6-C7. There is mild degenerative disc narrowing the upper cervical spine. There is extensive facet arthropathy bilaterally. There is fusion of the bilateral C2-C3 facet joints. There is bilateral neural foraminal narrowing at C3-C4. There is probable bilateral neural foraminal narrowing at C4-C5. There is bilateral neural foraminal narrowing at C5-C6 and C6-C7. No prevertebral soft tissue swelling. Impression: No fracture or subluxation of the cervical spine. Moderate degenerative spondylosis, as above. Given toradol and metoclopramide. She was also placed on oxygen as she had some desats. Will admit for closed head injury and inability to tolerate PO as well as desats Vital Signs Vital signs: Vital Signs Temperature 97.6 F 08/16/24 05:17 Pulse Rate 82 08/16/24 05:17 Respiratory Rate 20 08/16/24 05:17 Blood Pressure 171/85 H 08/16/24 05:17 Pulse Oximetry 98 08/16/24 05:17 Oxygen Delivery Room Air 08/16/24 05:17 Temperature 97.6 F 08/16/24 05:17 Pulse Rate 70 08/16/24 05:44 Respiratory Rate 18 08/16/24 05:44 Blood Pressure 147/79 H 08/16/24 05:44 Pulse Oximetry 93 08/16/24 05:44 Oxygen Delivery Room Air 08/16/24 05:44 Medical Decision Making Vital Signs Vital Signs: Vital Signs Temperature 97.6 F 08/16/24 05:17 Pulse Rate 82 08/16/24 05:17 Respiratory Rate 20 08/16/24 05:17 Blood Pressure 171/85 H 08/16/24 05:17 Pulse Oximetry 98 08/16/24 05:17 Oxygen Delivery Room Air 08/16/24 05:17 Temperature 97.6 F 08/16/24 05:17 Pulse Rate 70 08/16/24 05:44 Respiratory Rate 18 08/16/24 05:44 Blood Pressure 147/79 H 08/16/24 05:44 Pulse Oximetry 93 08/16/24 05:44 Oxygen Delivery Room Air 08/16/24 05:44 Lab Data 08/16/24 05:28 08/16/24 05:28 Labs: Lab Results 08/16/24 08/16/24 Range/Units 05:18 05:28 WBC 7.2 (4.8-10.8) K/mm3 RBC 4.86 (4.20-5.40) M/mm3 Hgb 14.5 H (11.7-13.8) g/dL Hct 43.5 H (35.0-42.0) % MCV 89.5 (78.0-102.0) fL MCH 29.8 (27.0-31.0) pg MCHC 33.3 (32-36) g/dL RDW 12.8 (11.6-14.4) % Plt Count 225 (150-420) K/mm3 MPV 9.7 (9.2-11.8) fl Immature Gran % (Auto) 0.3 H (0.0-0.0) % Neut % (Auto) 64.6 (50.0-70.0) % Lymph % (Auto) 22.0 (18.0-42.0) % [place] % (Auto) 10.1 (2.0-11.0) % Eos % (Auto) 2.3 (1.0-6.0) % Baso % (Auto) 0.7 (0.0-1.0) % Lymph # (Auto) 1.59 (1.10-4.50) K/mm3 [place] # (Auto) 0.73 (0.10-0.90) K/mm3 Eos # (Auto) 0.17 (0.02-0.50) K/mm3 Baso # (Auto) 0.05 (0.00-0.10) K/mm3 Abs Immat Gran (auto) 0.02 H (0.00-0.00) K/mm3 Absolute Neuts (auto) 4.68 (1.70-7.20) K/mm3 Absolute Nucleated RBC 0.00 (0.00-0.00) K/mm3 Nucleated RBC % 0.0 (0-0.0) % PT 10.5 (9.50-12.1) Seconds INR 0.9 Sodium 139 (136-145) mmol/L Potassium 4.0 (3.5-5.1) mmol/L Chloride 99 (98-108) mmol/L Carbon Dioxide 26 (21-32) mmol/L Anion Gap 14 H (4-12) mmol/L BUN 16 (7-18) mg/dL Creatinine 1.05 H (0.55-1.02) mg/dL Estim Creat Clear Calc 44 ml/min Estimated GFR 52 L (59 - ) Glucose 122 H (70-99) mg/dL POC Capillary Glucose 122 H (65-105) mg/dl Calculated Osmolality 290 (285-295) mOsm/kg Calcium 9.4 (8.5-10.1) mg/dL Magnesium 1.9 (1.8-2.4) mg/dL Total Bilirubin 0.7 (0.00-1.00) mg/dL AST 20 (15-37) U/L ALT 30 (14-59) U/L Alkaline Phosphatase 85 (46-116) U/L Troponin I 6.7 (0.00-60.4) ng/L Total Protein 8.3 H (6.4-8.2) g/dL Albumin 4.2 (3.4-5.0) g/dL Discharge Plan Discharge Clinical Impression: Closed head injury Patient Disposition: Acute Care [facility] Condition: Serious Instructions: Antibiotic Form Patient Language: Kittitian Prescriptions: No Action cyanocobalamin (vitamin B-12) [Vitamin B-12] 1,000 mcg Tablet 1,000 mcg PO DAILY pantoprazole 40 mg tablet,delayed release (DR/EC) 40 mg PO BID aspirin 81 mg Tablet 81 mg PO DAILY pravastatin 20 mg Tablet 20 mg PO HS zolpidem 10 mg Tablet 5 mg PO HS escitalopram oxalate 10 mg Tablet 10 mg PO HS cholecalciferol (vitamin D3) [Vitamin D3] 125 mcg (5,000 unit) Tablet 125 mcg PO DAILY Immune Plus 1 wafer PO DAILY Follow-up/Referrals: Jodie Caruso MD [Primary Care Provider] -
[2024-08-16 05:20] LABS: Glucose Point of Care 122 mg/dl (65-105)
[2024-08-16 05:31] LABS: Basophils Absolute Auto 0.05 K/mm3 (0.00-0.10); Basophils Percent Auto 0.7 % (0.0-1.0); Eosinophils Absolute Auto 0.17 K/mm3 (0.02-0.50); Eosinophils Percent Auto 2.3 % (1.0-6.0); Hematocrit 43.5 % (35.0-42.0); Hemoglobin 14.5 g/dL (11.7-13.8); Immature Granulocyte Absolute 0.02 K/mm3 (0.00-0.00); Immature Granulocyte Percent A 0.3 % (0.0-0.0); Lymphocytes Absolute Auto 1.59 K/mm3 (1.10-4.50); Mean Corpuscular HGB Conc 33.3 g/dL (32-36); Mean Corpuscular Hemoglobin 29.8 pg (27.0-31.0); Mean Corpuscular Volume 89.5 fL (78.0-102.0); Mean Platelet Volume 9.7 fl (9.2-11.8); Monocytes Absolute Auto 0.73 K/mm3 (0.10-0.90); Monocytes Percent Auto 10.1 % (2.0-11.0); Neutrophils Absolute Auto 4.68 K/mm3 (1.70-7.20); Neutrophils Percent Auto 64.6 % (50.0-70.0); Platelet Count Result 225 K/mm3 (150-420); Red Blood Count 4.86 M/mm3 (4.20-5.40); Red Cell Distribution Width 12.8 % (11.6-14.4); White Blood Count 7.2 K/mm3 (4.8-10.8)
[2024-08-16] MEDS: fentaNYL CITRATE INJ (*CRX) 100 MCG/2 ML VIAL 50 MCG IV PUSH (05:34)
--- NOTE | 2024-08-16 05:39 | ECG_ITS ---
Test Date: 2024-08-16 05:37:23 Measurements Intervals [place] Rate: 73 P: 42 IN: 174 QRS: 30 QRSD: 100 T: 46 QT: 387 QTc: 428 Interpretive Statements SINUS RHYTHM BASELINE ARTIFACT- I, II, III, AVR, AVL, AVF, V4-V6 NORMAL ECG No previous ECG available for comparison Electronically Signed On 08-16-2024 07:06:03 ROOFER GYPSUM by Reji Amaro D.O.
[2024-08-16 05:44] VITALS: BP 147/79; PULSE 70; RESP 18; O2SAT 93
[2024-08-16 05:47] LABS: INR 0.9; Prothrombin Time 10.5 Seconds (9.50-12.1)
[2024-08-16 05:53] LABS: Alanine Aminotransferase 30 U/L (14-59); Albumin Level 4.2 g/dL (3.4-5.0); Alkaline Phosphatase 85 U/L (46-116); Anion Gap 14 mmol/L (4-12); Aspartate Amino Transferase 20 U/L (15-37); Bilirubin,Total 0.7 mg/dL (0.00-1.00); Blood Urea Nitrogen 16 mg/dL (7-18); Calcium 9.4 mg/dL (8.5-10.1); Carbon Dioxide 26 mmol/L (21-32); Chloride 99 mmol/L (98-108); Estimated CRCL calculation 44 ml/min; Estimated Glomerular Filt Rate 52; Glucose 122 mg/dL (70-99); Magnesium 1.9 mg/dL (1.8-2.4); Osmolality Calculated 290 mOsm/kg (285-295); Sodium 139 mmol/L (136-145); Total Protein 8.3 g/dL (6.4-8.2); Troponin I 6.7 ng/L (0.00-60.4)
[2024-08-16] MEDS: LORazepam INJ (*CRX) 2 MG/ML VIAL 1 MG IV PUSH (06:32)
[2024-08-16 06:47] VITALS: PULSE 76; RESP 16; O2SAT 86
--- NOTE | 2024-08-16 06:48 | PC.NURSE ---
Pt still has c/o severe nausea and feeling dizzy and lightheaded when moving. She states she hasn['t eaten anything for over 24 hrs. POC discussed w/ pt and her spouse for 23 hr obs. Call placed to [facility] and spoke to Dr Marte for obs admit.
[2024-08-16] MEDS: KETOROLAC 30 MG/ML VIAL (*BKC) IV PUSH (06:52)
[2024-08-16] MEDS: SODIUM CHLORIDE 0.9% IV 1,000 ML 999 ML IV CONT (06:54)
[2024-08-16] MEDS: METOCLOPRAMIDE HCL INJ 10 MG/2 ML VIAL IV PUSH (06:56)
[2024-08-16 07:00] VITALS: BP 131/75; PULSE 75; RESP 18; O2SAT 96
--- NOTE | 2024-08-16 07:03 | PC.NURSE ---
Report given to JALEN Ocasio and pt will go to Rm [id number] as 23 hr obs.
[2024-08-16 07:39] VITALS: BP 122/60; PULSE 92; RESP 13; O2SAT 100
[2024-08-16 07:56] VITALS: BMI 31.1
--- NOTE | 2024-08-16 11:14 | P.PNIM_ITS ---
Subjective Date/time seen: 08/16/24 11:14 Interval history: this is a 73-year-old female with a significant past medical history of anxiety, hypertension, hyperlipidemia who presented after sustaining a head injury with loss of consciousness from a ground level fall. She reported that she was out for about 10 minutes and then went to bed. She woke up this morning with severe headache and has been vomiting ever since. Workup in the hospital included a C-spine CT which was negative for any fracture or subluxation of the cervical spine, moderate degenerative spondylosis. Head CT was negative for any acute intracranial abnormality including mass, lesion, infarct, hemorrhage, it did show soft tissue swelling hematoma in the left parietal scalp. Initial labs showed a normal white blood cell count of 7.2, hemoglobin 14.5, creatinine 1.05, EGFR 52, troponin was negative. EKG showed sinus rhythm with a rate of 73, QTC 428. Patient was given 1 L of normal saline, Reglan, Toradol, Ativan, Zofran, fentanyl while in the ED. Review of Systems Review of Systems: All systems reviewed & are unremarkable except as noted in HPI and below Exam Narrative: General: In no acute distress, well nourished Head: atraumatic, no encephalopathy Eyes: EOMI, PERRLA, sclera clear ENT: moist mucous membranes, nasal passages clear Neck: supple, no JVD, no adenopathy, trachea midline Cardiac: Normal S1 and S2. No murmur, gallops or friction rubs, peripheral pulses intact. Respiratory: Lungs clear to auscultation, no adventitious lung sounds Gastrointestinal: soft, non-distended, non-tender, normoactive bowel sounds. : voiding without difficulty. Extremities: moves all extremities well, no edema, good ROM, strength 5/5 Skin: clean, dry, intact. No wounds or lesions. Neuro: Alert and oriented x4, cranial nerves intact, no neuro deficits. Psych: normal mood, normal affect, interactive Objective Data Vital Signs Vital Signs: Vital Signs - 24 hr 08/16/24 05:17 08/16/24 05:44 08/16/24 06:47 Temperature 97.6 F Pulse Rate 82 70 76 Respiratory Rate 20 18 16 Blood Pressure 171/85 H 147/79 H Pulse Oximetry 98 93 86 L Oxygen Delivery Room Air Room Air Room Air Oxygen Flow Rate 08/16/24 07:00 08/16/24 07:39 Temperature Pulse Rate 75 92 Respiratory Rate 18 13 Blood Pressure 131/75 122/60 Pulse Oximetry 96 100 Oxygen Delivery Nasal Cannula Room Air Oxygen Flow Rate 2 Intake/Output Intake/Output: Intake & Output 08/13/24 08/14/24 08/15/24 08/16/24 23:59 23:59 23:59 23:59 Intake Total 1000 Balance 1000 Meds/Results Medications: Active Medications Generic Name Dose Route Start Last Admin Trade Name Freq PRN Reason Stop Dose Admin Acetaminophen 650 mg 08/16/24 06:49 Acetaminophen 325 Mg Tablet PO Q4H PRN Mild Pain (1-3) or Fever Hydrocodone Bitart/Acetaminophen 1 tab 08/16/24 06:49 Hydrocodone/Acetaminophen (*Crx) 5-325 Mg Tablet PO Q4H PRN Moderate Pain (4-6) Morphine Sulfate 2 mg 08/16/24 06:49 Morphine Sulfate (*Crx) 2 Mg/Ml Inj IV PUSH Q4H PRN Pain Rated 7-10 Naloxone HCl 0.1 mg 08/16/24 06:49 Naloxone Hcl 0.4 Mg/Ml Vial IV PUSH Q2M PRN Opiate Reversal Ondansetron HCl 4 mg 08/16/24 06:49 Ondansetron Inj 4 Mg/2 Ml Vial IV PUSH Q6H PRN Nausea And Vomiting Radiology Results: ITS Impressions Cervical Spine CT 08/16/24 06:16 Impression: No fracture or subluxation of the cervical spine. Moderate degenerative spondylosis, as above. Head CT 08/16/24 06:16 Impression: No intracranial abnormality seen. Soft tissue swelling/hematoma in the left parietal scalp. Labs Labs: Laboratory Results - last 24 hr 08/16/24 08/16/24 05:18 05:28 WBC 7.2 RBC 4.86 Hgb 14.5 H Hct 43.5 H MCV 89.5 MCH 29.8 MCHC 33.3 RDW 12.8 Plt Count 225 MPV 9.7 Immature Gran % (Auto) 0.3 H Neut % (Auto) 64.6 Lymph % (Auto) 22.0 [place] % (Auto) 10.1 Eos % (Auto) 2.3 Baso % (Auto) 0.7 Lymph # (Auto) 1.59 [place] # (Auto) 0.73 Eos # (Auto) 0.17 Baso # (Auto) 0.05 Abs Immat Gran (auto) 0.02 H Absolute Neuts (auto) 4.68 Absolute Nucleated RBC 0.00 Nucleated RBC % 0.0 PT 10.5 INR 0.9 Sodium 139 Potassium 4.0 Chloride 99 Carbon Dioxide 26 Anion Gap 14 H BUN 16 Creatinine 1.05 H Estim Creat Clear Calc 44 Estimated GFR 52 L Glucose 122 H POC Capillary Glucose 122 H Calculated Osmolality 290 Calcium 9.4 Magnesium 1.9 Total Bilirubin 0.7 AST 20 ALT 30 Alkaline Phosphatase 85 Troponin I 6.7 Total Protein 8.3 H Albumin 4.2
--- NOTE | 2024-08-16 11:19 | P.HP_ITS ---
H&P: HPI History of Present Illness Date/Time: 08/16/24 11:19 Chief Complaint: closed head injury Narrative: This is a 73-year-old female with a significant past medical history of anxiety, hypertension, hyperlipidemia who presented after sustaining a head injury with loss of consciousness from a ground level fall. She states that after superbowl Thursday night she was taking some pizzas up a flight of stairs, missed a step and fell backwards striking her head on the concrete. She reported that she was out for about 10 minutes and ended up going to bed later that evening. She woke up this yesterday with severe headache and has been vomiting ever since. she reports headache, lightheadedness, blurry vision, vertigo like dizziness, nausea, and vomiting. Workup in the hospital included a C-spine CT which was negative for any fracture or subluxation of the cervical spine, moderate degenerative spondylosis. Head CT was negative for any acute intracranial abnormality including mass, lesion, infarct, hemorrhage, it did show soft tissue swelling hematoma in the left parietal scalp. Initial labs showed a normal white blood cell count of 7.2, hemoglobin 14.5, creatinine 1.05, EGFR 52, troponin was negative. EKG showed sinus rhythm with a rate of 73, QTC 428. Patient was given 1 L of normal saline, Reglan, Toradol, Ativan, Zofran, fentanyl while in the ED. Review of Systems Review of Systems: All systems reviewed & are unremarkable except as noted in HPI and below PMFSH Past Medical History Medical History Insomnia GERD (gastroesophageal reflux disease) Depression Vitamin B12 deficiency Vitamin D deficiency Breast CA Anxiety Hypercholesterolemia Social History Social History Smoking status: Never smoker Alcohol intake: current Drinks per week: 12 Substance use: never Substance use type: does not use Do You Feel Safe in your Home?: Yes Lack of Transportation: No Lack of Food: Never True Current Housing: I Have Housing Concerned About Future Housing: No Difficulty Paying Gas/Electric Bills: No Difficulty Paying for Meds: No Currently Unemployed: No Education: High School Diploma/GED Difficulty w/ Childcare or Family Care: No Living arrangements: with family Spiritual care concerns: No Meds Home Medications and Allergies Home Medications ?Medication ?Instructions ?Recorded ?Confirmed ?Type aspirin 81 mg tablet 81 mg PO DAILY 07/31/20 08/16/24 History cholecalciferol (vitamin D3) 125 125 mcg PO DAILY 07/31/20 08/16/24 History mcg (5,000 unit) tablet (Vitamin D3) cyanocobalamin (vitamin B-12) 1,000 mcg PO DAILY 07/31/20 08/16/24 History 1,000 mcg tablet (Vitamin B-12) escitalopram oxalate 10 mg tablet 10 mg PO HS 07/31/20 08/16/24 History pantoprazole 40 mg tablet,delayed 40 mg PO BID 07/31/20 08/16/24 History release pravastatin 20 mg tablet 20 mg PO HS 07/31/20 08/16/24 History zolpidem 10 mg tablet 5 mg PO HS 07/31/20 08/16/24 History Allergies Allergy/AdvReac Type Severity Reaction Status Date / Time No Known Allergies Allergy Verified 08/16/20 06:24 Vital Signs Vital Signs - 24 hr 08/16/24 05:17 08/16/24 05:44 08/16/24 06:47 Temperature 97.6 F Pulse Rate 82 70 76 Respiratory Rate 20 18 16 Blood Pressure 171/85 H 147/79 H Pulse Oximetry 98 93 86 L Oxygen Delivery Room Air Room Air Room Air Oxygen Flow Rate 08/16/24 07:00 08/16/24 07:39 Temperature Pulse Rate 75 92 Respiratory Rate 18 13 Blood Pressure 131/75 122/60 Pulse Oximetry 96 100 Oxygen Delivery Nasal Cannula Room Air Oxygen Flow Rate 2 Exam Narrative: General: In no acute distress, well nourished Head: atraumatic, no encephalopathy, reports headache, lightheadedness, dizziness, occipital hematoma Eyes: PERRLA, sclera clear, reports blurry vision ENT: moist mucous membranes, nasal passages clear Neck: supple, no JVD, no adenopathy, trachea midline Cardiac: Normal S1 and S2. RRR,No murmur, gallops or friction rubs, peripheral pulses intact. Respiratory: Lungs clear to auscultation, no adventitious lung sounds, currently on room air Gastrointestinal: soft, non-distended, non-tender, normoactive bowel sounds. reports nausea and vomiting : voiding without difficulty. Extremities: moves all extremities well, no edema Skin: clean, dry, intact. No wounds or lesions. Neuro: Alert and oriented x4, cranial nerves intact, no neuro deficits. Psych: normal mood, normal affect, interactive H&P: Results Labs Labs: Short CBC 08/16/24 Range/Units 05:28 WBC 7.2 (4.8-10.8) K/mm3 Hgb 14.5 H (11.7-13.8) g/dL Hct 43.5 H (35.0-42.0) % Plt Count 225 (150-420) K/mm3 BMP 08/16/24 05:28 Sodium 139 Potassium 4.0 Chloride 99 Carbon Dioxide 26 BUN 16 Creatinine 1.05 H Glucose 122 H Calcium 9.4 Cardiac Enzymes 08/16/24 Range/Units 05:28 Troponin I 6.7 (0.00-60.4) ng/L Liver Function 08/16/24 Range/Units 05:28 Total Bilirubin 0.7 (0.00-1.00) mg/dL AST 20 (15-37) U/L ALT 30 (14-59) U/L Alkaline Phosphatase 85 (46-116) U/L Albumin 4.2 (3.4-5.0) g/dL Imaging cervical spine CT: Radiologist's impression: Noncontrast CT scan of the cervical spine Technique: Multiple contiguous axial [address] images of the cervical spine were obtained and reconstructed in 2D sagittal and coronal planes on the acquisition scanner. Dose reduction technique was used on this scan by utilizing automated exposure control, adjustment of the mA and/or kV according to patient size. The dose-length product (DLP) was 863.95 mGy-cm. Clinical History: Pain Findings: No fractures or dislocations. There is reversal normal cervical lordosis. There is severe degenerative disc narrowing at C5-C6 and C6-C7. There is mild degenerative disc narrowing the upper cervical spine. There is extensive facet arthropathy bilaterally. There is fusion of the bilateral C2-C3 facet joints. There is bilateral neural foraminal narrowing at C3-C4. There is probable bilateral neural foraminal narrowing at C4-C5. There is bilateral neural foraminal narrowing at C5-C6 and C6-C7. No prevertebral soft tissue swelling. Impression: No fracture or subluxation of the cervical spine. Moderate degenerative spondylosis, as above. Reviewed, dictated and finalized at location M. ING INSTRUCTOR CT scan - head: Radiologist's impression: Non-contrast Head CT History: Head injury Technique: Axial non-contrast imaging of the brain was performed. Dose reduction technique was used on this scan by utilizing automated exposure contro l and iterative reconstruction technique. The dose-length product (DLP) was 605.33 mGy-cm. Findings: There is no evidence of intracranial hemorrhage, mass lesion, or acute infarct. Brain parenchyma appears normal. The ventricles and subarachnoid spaces are normal in size. The calvarium appears normal. The visualized paranasal sinuses and mastoid air cells are clear. There is soft tissue swelling/hematoma in the left parietal scalp. Impression: No intracranial abnormality seen. Soft tissue swelling/hematoma in the left parietal scalp. Reviewed, dictated and finalized at location M. ING INSTRUCTOR Assessment and Plan Assessment and plan (1) Fall from ground level: Code(s): W18.30XA - Fall on same level, unspecified, initial encounter Status: Acute Assessment and Plan: patient fell backwards striking head with loss of consciousness for approximately 10 minutes yesterday after the [employer] game. After waking up she went to bed. She woke up this morning with nausea,vomiting and headache * continue fall precautions (2) Closed head injury: Code(s): S09.90XA - Unspecified injury of head, initial encounter Status: Acute Assessment and Plan: likely acute concussion * CT of the cervical spine was negative for any acute fracture or subluxation of the cervical spine it did show moderate degenerative spondylosis. * Head CT was negative for any acute intracranial abnormality, showed soft tissue swelling / hematoma in the left parietal scalp * continue neuro checks every 4 hours * continue nausea control * continue pain control * advance diet as tolerated to regular diet (3) Hypercholesterolemia: Code(s): E78.00 - Pure hypercholesterolemia, unspecified Status: Acute Assessment and Plan: * continue aspirin and pravastatin (4) Vitamin D deficiency: Code(s): E55.9 - Vitamin D deficiency, unspecified Status: Acute Assessment and Plan: * continue vitamin-D (5) Vitamin B12 deficiency: Code(s): E53.8 - Deficiency of other specified B group vitamins Status: Acute Assessment and Plan: * continue vitamin B12 (6) Depression: Code(s): F32.A - Depression, unspecified Status: Acute Assessment and Plan: * continue Lexapro (7) GERD (gastroesophageal reflux disease): Code(s): K21.9 - Gastro-esophageal reflux disease without esophagitis Status: Acute Assessment and Plan: * continue Protonix 40 mg b.i.d. Quality VTE Prophylaxis VTE prophylaxis: mechanical ordered Hospitalist MIPS Advance Care Plan I have confirmed that the patient's Advanced Care Plan is present, code status is documented, or surrogate decision maker is listed in patient medical record.: Yes Medication Reconciliation I have utilized all available resources to obtain, update and review the patients current medications (includes all prescriptions, OTC, herbals, cannabis, and nutritional supplements).: Yes
[2024-08-16] MEDS: CHOLECALCIFEROL 5,000 UNITS TABLET 5000 UNITS PO (13:26)
[2024-08-16] MEDS: CYANOCOBALAMIN 1,000 MCG TABLET 1000 MCG PO (13:26)
[2024-08-16] MEDS: SODIUM CHLORIDE 0.9% IV 1,000 ML 100 ML IV CONT (14:51)
--- NOTE | 2024-08-16 15:59 | ADMGEN ---
[id number] This patient, Cari Galvin, was admitted to 2nd Floor Room 207-1. here for fall down steps thursday after carrying pizza boxes up stairs. claims she unable to hold anything down since. feels funny/dizzy upon rising and walking. spent all day thursday except to use br. 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 has ice pack off and on to neck and back of head. just wants to sleep at this time. Patient/family oriented to hospital policies and general routines including ID bracelet, bed and alarms, visiting hours, pain management, procedures, bathroom and other care routines, personal items, smoking policy, room service/diet, and visiting hours. Information on how to activate the Rapid Response Team has been discussed. Patient/Family are encouraged to report perceived risks to care and to ask questions if they do not understand what they are told or what they should do.
[2024-08-16 16:00] VITALS: BP 134/62; PULSE 69; RESP 18; TEMP 36.6; O2SAT 96
[2024-08-16] MEDS: ACETAMINOPHEN 325 MG TABLET 650 MG PO (16:00)
[2024-08-16] MEDS: PANTOPRAZOLE 40 MG TABLET PO (16:01)
[2024-08-16] MEDS: MECLIZINE HCL 12.5 MG TABLET PO ×2 (16:01→20:31)
[2024-08-16] MEDS: HYDROcodone/acetaminophen (*CRX) 5-325 MG TABLET 1 TAB PO (20:31)
[2024-08-16] MEDS: PRAVASTATIN SODIUM 20 MG TABLET PO (20:33)
[2024-08-16] MEDS: ESCITALOPRAM OXALATE 10 MG TABLET PO (20:35)
[2024-08-17] VITALS: BP 145/74; PULSE 60; RESP 20; TEMP 36.4; O2SAT 94
--- NOTE | 2024-08-17 00:10 | PC.NURSE ---
Neuro checks within normal limits; [place] bilaterally-no deviation noted.
[2024-08-17] MEDS: SODIUM CHLORIDE 0.9% IV 1,000 ML 100 ML IV CONT (00:30)
--- NOTE | 2024-08-17 00:30 | PC.NURSE ---
Pt up to the bathroom with standby assist and voided 200 ml of clear, armando urine. New bag of IV fluid infusing as ordered. Pt back to bed with standby assist of one.
--- NOTE | 2024-08-17 02:20 | PC.NURSE ---
Pt asleep and IV fluid continues to infuse as ordered. No signs of discomfort noted.
--- NOTE | 2024-08-17 04:00 | PC.NURSE ---
Neurochecks equal and reactive to light. Hand director alumni relations equally as strong and no weakness noted.
[2024-08-17 05:50] LABS: Basophils Absolute Auto 0.04 K/mm3 (0.00-0.10); Basophils Percent Auto 0.9 % (0.0-1.0); Eosinophils Absolute Auto 0.36 K/mm3 (0.02-0.50); Eosinophils Percent Auto 7.8 % (1.0-6.0); Hematocrit 38.7 % (35.0-42.0); Hemoglobin 11.6 g/dL (11.7-13.8); Immature Granulocyte Absolute 0.01 K/mm3 (0.00-0.00); Immature Granulocyte Percent A 0.2 % (0.0-0.0); Lymphocytes Absolute Auto 1.69 K/mm3 (1.10-4.50); Lymphocytes Percent Auto 36.4 % (18.0-42.0); Mean Corpuscular Hemoglobin 30.1 pg (27.0-31.0); Mean Corpuscular Volume 100.5 fL (78.0-102.0); Mean Platelet Volume 9.9 fl (9.2-11.8); Monocytes Absolute Auto 0.52 K/mm3 (0.10-0.90); Monocytes Percent Auto 11.2 % (2.0-11.0); Neutrophils Absolute Auto 2.02 K/mm3 (1.70-7.20); Neutrophils Percent Auto 43.5 % (50.0-70.0); Platelet Count Result 137 K/mm3 (150-420); Red Blood Count 3.85 M/mm3 (4.20-5.40); Red Cell Distribution Width 13.4 % (11.6-14.4); White Blood Count 4.6 K/mm3 (4.8-10.8)
[2024-08-17 06:04] VITALS: TEMP 36.4
[2024-08-17] MEDS: ACETAMINOPHEN 325 MG TABLET 650 MG PO (06:04)
--- NOTE | 2024-08-17 06:05 | PC.NURSE ---
Pt c/o headache and rated it as a '6'. She also said she had a sharp pain in her right ear and requested pain medication. Pt given tylenol 650 mg PO to relieve pain and discomfort.
[2024-08-17 06:11] LABS: Alanine Aminotransferase 22 U/L (14-59); Albumin Level 2.6 g/dL (3.4-5.0); Alkaline Phosphatase 60 U/L (46-116); Anion Gap 9 mmol/L (4-12); Aspartate Amino Transferase 22 U/L (15-37); Bilirubin,Total 0.5 mg/dL (0.00-1.00); Blood Urea Nitrogen 13 mg/dL (7-18); Calcium 8.1 mg/dL (8.5-10.1); Carbon Dioxide 21 mmol/L (21-32); Chloride 107 mmol/L (98-108); Estimated CRCL calculation 57 ml/min; Estimated Glomerular Filt Rate > 60; Glucose 96 mg/dL (70-99); Osmolality Calculated 284 mOsm/kg (285-295); Potassium 3.8 mmol/L (3.5-5.1); Sodium 137 mmol/L (136-145); Total Protein 6.1 g/dL (6.4-8.2)
[2024-08-17 08:00] VITALS: BP 150/60; PULSE 62; RESP 18; TEMP 36.6; O2SAT 97
--- NOTE | 2024-08-17 09:42 | P.DS_ITS ---
DS: Admitting Diagnosis Discharge Date 08/17/2024 Admitting Diagnosis Fall/Head Injury/Concession DS: Discharge Diagnosis Discharge Diagnosis (1) Concussion: Code(s): S06.0XAA - Concussion with loss of consciousness status unknown, initial encounter Status: Acute (2) Fall from ground level: Code(s): W18.30XA - Fall on same level, unspecified, initial encounter Status: Acute Assessment and Plan: patient fell backwards striking head with loss of consciousness for approximately 10 minutes yesterday after the [employer] / [employer] game. After waking up she went to bed. She woke up this morning with nausea,vomiting and headache * continue fall precautions (3) Closed head injury: Code(s): S09.90XA - Unspecified injury of head, initial encounter Status: Acute Assessment and Plan: likely acute concussion * CT of the cervical spine was negative for any acute fracture or subluxation of the cervical spine it did show moderate degenerative spondylosis. * Head CT was negative for any acute intracranial abnormality, showed soft tissue swelling / hematoma in the left parietal scalp * continue neuro checks every 4 hours * continue nausea control * continue pain control * advance diet as tolerated to regular diet (4) Hypercholesterolemia: Code(s): E78.00 - Pure hypercholesterolemia, unspecified Status: Acute Assessment and Plan: * continue aspirin and pravastatin (5) Vitamin D deficiency: Code(s): E55.9 - Vitamin D deficiency, unspecified Status: Acute Assessment and Plan: * continue vitamin-D (6) Vitamin B12 deficiency: Code(s): E53.8 - Deficiency of other specified B group vitamins Status: Acute Assessment and Plan: * continue vitamin B12 (7) Depression: Code(s): F32.A - Depression, unspecified Status: Acute Assessment and Plan: * continue Lexapro (8) GERD (gastroesophageal reflux disease): Code(s): K21.9 - Gastro-esophageal reflux disease without esophagitis Status: Acute Assessment and Plan: * continue Protonix 40 mg b.i.d. Plan Disposition: Discharged to home DS: Summary Hospital Course Reason for hospitalization: Fall/head injury/concussion Hospital Course: This is a 73-year-old female with a significant past medical history of anxiety, hypertension, hyperlipidemia who presented after sustaining a head injury with loss of consciousness from a ground level fall. She states that after [employer] Thursday night she was taking some pizzas up a flight of stairs, missed a step and fell backwards striking her head on the concrete. She reported that she was out for about 10 minutes and ended up going to bed later that evening. She woke up this yesterday with severe headache and has been vomiting ever since. she reports headache, lightheadedness, blurry vision, vertigo like dizziness, nausea, and vomiting. Workup in the hospital included a C-spine CT which was negative for any fracture or subluxation of the cervical spine, moderate degenerative spondylosis. Head CT was negative for any acute intracranial abnormality including mass, lesion, infarct, hemorrhage, it did show soft tissue swelling hematoma in the left parietal scalp. Initial labs showed a normal white blood cell count of 7.2, hemoglobin 14.5, creatinine 1.05, EGFR 52, troponin was negative. EKG showed sinus rhythm with a rate of 73, QTC 428. Patient was given 1 L of normal saline, Reglan, Toradol, Ativan, Zofran, fentanyl while in the ED. Patient continued to improved with antiemetics, meclizine, and rest. Follow-up CT head showed normal brain patient appeared to have suffered a concussion. Patient still with mild headache and vertigo but was able to tolerate oral intake and overall improvement. She was educated on recommendations and healing process and discharged to home with Zofran and meclizine as needed and encouraged to seek medical attention if symptoms worsen and she begins to have severe headache and visual changes with no relief with medications. Patient acknowledged and agreed with discharge plan she was also advised to hold her aspirin for 14 days. Status at Discharge Functional status at discharge: independent ambulation Time Spent with Patient Time attestation: Total time spent providing and/or coordinating discharge services: Time spent: Greater than 30 minutes Exam Narrative: General: In no acute distress, well nourished Head: atraumatic, no encephalopathy, reports headache, lightheadedness, dizziness, occipital hematoma Eyes: PERRLA, sclera clear, reports blurry vision Cardiac: Normal S1 and S2. RRR,No murmur, gallops or friction rubs, peripheral pulses intact. Respiratory: Lungs clear to auscultation, no adventitious lung sounds, currently on room air Gastrointestinal: soft, non-distended, non-tender, normoactive bowel sounds. reports nausea and vomiting. Extremities: moves all extremities well, no edema Skin: clean, dry, intact. No wounds or lesions. Neuro: Alert and oriented x4, cranial nerves intact, no neuro deficits. Psych: normal mood, normal affect, interactive DS: Data Data Completed and Pending Labs on day of discharge: Labs from last 24 hours 08/17/24 05:29 WBC 4.6 L RBC 3.85 L Hgb 11.6 L Hct 38.7 MCV 100.5 MCH 30.1 MCHC 30.0 L RDW 13.4 Plt Count 137 L MPV 9.9 Immature Gran % (Auto) 0.2 H Neut % (Auto) 43.5 L Lymph % (Auto) 36.4 [place] % (Auto) 11.2 H Eos % (Auto) 7.8 H Baso % (Auto) 0.9 Lymph # (Auto) 1.69 [place] # (Auto) 0.52 Eos # (Auto) 0.36 Baso # (Auto) 0.04 Abs Immat Gran (auto) 0.01 H Absolute Neuts (auto) 2.02 Absolute Nucleated RBC 0.00 Nucleated RBC % 0.0 Sodium 137 Potassium 3.8 Chloride 107 Carbon Dioxide 21 Anion Gap 9 BUN 13 Creatinine 0.79 Estim Creat Clear Calc 57 Estimated GFR > 60 Glucose 96 Calculated Osmolality 284 L Calcium 8.1 L Total Bilirubin 0.5 AST 22 ALT 22 Alkaline Phosphatase 60 Total Protein 6.1 L Albumin 2.6 L Imaging Radiologist's impression: EXAMINATION: CT brain wo con DATE: 08/17/2024 09:03 INDICATION: Headache. Dizziness. TECHNIQUE: Computed tomography (CT) of the head was performed without intravenous contrast. The mA was adjusted according to patient size. Iterative reconstruction technique was employed. The dose-length product was 605.33 mGy- cm. COMPARISON: Head CT 08/16/2024 FINDINGS: There is no intracranial hemorrhage, acute infarction, or abnormal intracranial mass lesion. The ventricles are normal in size. There is a left posterior scalp hematoma. The orbits are normal. There is mild mucosal thickening in the paranasal sinuses. The mastoid air cells are normal. IMPRESSION: 1. Normal brain. Discharge Plan Discharge Attending physician on discharge: Jamie Santiago Discharging Clinician: Emmie Euceda Anticipated Discharge Date/Time: 08/17/24 09:35 Patient Disposition: Home, Self-Care Activity: may shower and other - see discharge instructions Diet: as tolerated Discharge Instructions: Concussion * I have prescribed zofran for nausea and vomiting as well as meclizine for dizziness as needed * minimal activity * limit any type of screen time recommend low light * may use acetaminophen or ibuprofen for headache also prescribed [place] for severe headache * please hold your aspirin 81 mg for 14 days * if you experience any worsening dizziness nausea vomiting visual changes or severe headache at not improve with medication seek medical attention How can you care for yourself at home? ? Keep track of any new symptoms or changes in your symptoms. ? Rest until you feel better. ? Be safe with medicines. Take your medicines exactly as prescribed. Call your doctor if you think you are having a problem with your medicine. ? Do not drive after taking a prescription pain medicine. ? Ensure to follow-up with primary care physician as indicated and provide updated medication list provided to you at discharge. When should you call for help? Call 911 anytime you think you may need emergency care. For example, call if: ? You passed out (lost consciousness). Call your doctor now or seek immediate medical care if: ? You have new symptoms like fever, difficulty breathing, Chest pain, vomiting, or rash. ? You have new or different pain. ? You are confused and are having trouble thinking clearly. ? Your symptoms are getting worse. Watch closely for changes in your health, and be sure to contact your doctor if: ? You do not get better as expected. Patient Instructions: Hydrocodone/Acetaminophen (By mouth), Meclizine (By merced th), Concussion (DC), Fall Prevention for Older Adults (DC) Patient Language: Bengali Stand Alone Forms: General Discharge Information Follow-up/Referrals: Abraham Marte DO [Emergency Provider] - 4 Weeks Discharge Medications: New hydrocodone-acetaminophen 5-325 mg Tablet 1 tablet PO Q4H PRN (Reason: Moderate Pain (4-6)) Qty: 20 0RF meclizine 12.5 mg Tablet 12.5 mg PO QID Qty: 30 0RF cholecalciferol (vitamin D3) 125 mcg (5,000 unit) Tablet 125 mcg PO DAILY Qty: 30 0RF ondansetron 4 mg tablet,disintegrating 4 mg PO Q8H PRN (Reason: nausea and vomiting) Qty: 30 0RF Continued carvedilol 12.5 mg tablet 12.5 mg PO Q12H cyanocobalamin (vitamin B-12) [Vitamin B-12] 1,000 mcg Tablet 1,000 mcg PO DAILY pravastatin 20 mg Tablet 20 mg PO HS zolpidem 10 mg Tablet 5 mg PO HS escitalopram oxalate 10 mg Tablet 10 mg PO DAILY Patient Comments: Takes in the morning Held aspirin 81 mg Tablet 81 mg PO DAILY Hold Instructions: Resume on 08/31/24. Discontinued pantoprazole 40 mg tablet,delayed release (DR/EC) 40 mg PO BID cholecalciferol (vitamin D3) [Vitamin D3] 125 mcg (5,000 unit) Tablet 125 mcg PO DAILY Date of admission: 08/16/24 06:49 Primary Care Provider: Jodie Caruso Admitting Provider: Jamie Santiago Attending physician on admission: Emmie Euceda Condition: Improved Quality VTE Prophylaxis VTE prophylaxis: mechanical ordered -Patient's previous records reviewed on admission -ER notes reviewed in detail on admission -discussed all findings and current treatment plan with patient/Family/POA -Consultations reviewed for recommendations -Patient's disposition for safe discharge discussed with mental health case manager Dictation performed by [employer] direct speech recognition software, therefore stone banker variants and typographical errors may occur. Hospitalist MIPS Heart Failure (Exclusion) Patient has history of Heart Transplant or Left Ventricular Assistive Device?: No IF YES, STOP HERE Heart Failure (Qualifier) Patient has current or prior documentation of LVEF less than or equal to 40%, or mod/servere depressed LVSF?: No IF NO, STOP HERE
[2024-08-17] MEDS: KETOROLAC 30 MG/ML VIAL (*BKC) IV PUSH (09:46)
[2024-08-17] MEDS: MECLIZINE HCL 12.5 MG TABLET PO (09:50)
[2024-08-17] MEDS: CYANOCOBALAMIN 1,000 MCG TABLET 1000 MCG PO (09:50)
[2024-08-17 09:51] VITALS: PULSE 740
[2024-08-17] MEDS: CHOLECALCIFEROL 5,000 UNITS TABLET 5000 UNITS PO (09:51)
[2024-08-17] MEDS: carvediloL 12.5 MG TABLET PO (09:51)
[2024-08-17] MEDS: PANTOPRAZOLE 40 MG TABLET PO (09:52)
--- NOTE | 2024-08-17 14:42 | PC.NURSE ---
0830 c/o pain in r ear and into r neck. claims a sharp pain or spasms that comes and goes. still at times when up claims she feels off. not quite dizziness but off. neuro checks with in noramal limits. holding breakfast down. manager part aware of findings.
--- NOTE | 2024-08-17 15:21 | PC.NURSE ---
1016. still has twitches of spasms in r ear. but only occassionally. holding breakfast down... amb to br. takes it easy. still at times claims she feels off. neuro checks with in norm. dozes in and out.
--- NOTE | 2024-08-17 15:24 | PC.NURSE ---
1130 here. iv out and drg in place. went over dc instructions. vocalizes an understanding. calling when home for follow up appointment with fmd.
--- NOTE | 2024-08-18 14:15 | PC.NURSE ---
Discharge call back completed, doing ok, still feels like head doesn't belong on her shoulders, keeping oral food and fluids down. plan to follow up with PMD soon, no questions regarding dc instructions
== END 2024-08-17 11:30 | disposition home or self-care (01) ==
LOC: CHSED 06:57 → CHS2ND 07:29
PROVIDERS: Nurse Practitioner Acute Care; Admitting Provider Internal Medicine; Emergency Provider Family Medicine; PCP Internal Medicine; Visit Provider Nurse Practitioner Family
DX: S06.0XAA Concussion with loss of consciousness status unknown, initial encounter (principal); W01.198A Fall on same level from slipping, tripping and stumbling with subsequent striking against other object, initial encounter; I10 Essential (primary) hypertension; E78.00 Pure hypercholesterolemia, unspecified; E55.9 Vitamin D deficiency, unspecified; E53.8 Deficiency of other specified B group vitamins; F32.A Depression, unspecified; F41.9 Anxiety disorder, unspecified; K21.9 Gastro-esophageal reflux disease without esophagitis; Z79.82 Long term (current) use of aspirin; Z79.899 Other long term (current) drug therapy; Z85.3 Personal history of malignant neoplasm of breast
CPT/HCPCS: 36415; 70450; 72125; 80053; 82948; 83735; 84484; 85025; 85610; 93005; 96361; 96374; 96375; 96376; 97161; 97165; 99285; A9270; G0378; J1885; J2060; J2405; J2765; J3010; J7030

== ENCOUNTER 2024-08-25 09:33 | Outpatient (CLI) | payer MEDICARE, SELFPAY ==
--- NOTE | ~2024-08-25 | CT_ITS ---
Non-contrast Head CT History: Head injury COMPARISON: 08/17/2024 Technique: Axial non-contrast imaging of the brain was performed. Dose reduction technique was used on this scan by utilizing automated exposure control and iterative reconstruction technique. The dose -length product (DLP) was 605.33 mGy-cm. Findings: There is no evidence of intracranial hemorrhage, mass lesion, or acute infarct. Brain par enchyma appears normal. The ventricles and subarachnoid spaces are normal in size. The calvarium ap pears normal. The visualized paranasal sinuses and mastoid air cells are clear. There is focal hemat myra in the left parietal scalp. Impression: No intracranial abnormality seen. Left parietal scalp hematoma. Reviewed, dictated and finalized at [facility]. REPAIRMAN Impression: No intracranial abnormality seen. Left parietal scalp hematoma.
--- OUTSIDE RECORDS SUMMARY | 2024-08-25 09:43 | XMS_ITS | Referral Summary ---
Author Organization 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 There are [...] compared to prior imaging studies performed at [facility] on 08/10/2020, 09/24/2021 and 10/06/2022. There are [...] Most Recently Relevant to Health Maintenance Insurance [facility] MEDIC[facility] Address: [facility] [id number] [place] [address] T MEDICARE T MEDICARE Care Teams Assistant Store Manager Operations Relationship Specialty Start Date End Date Jodie Caruso MD [address] [place] [address] PCP - General Internal Medicine 11/11/17 Montserrat Ernandez NP [address] [facility] DIV IM MEDICAL ONCOLOGY, [address] [place] [address] Nurse Practitioner Medical Oncology 08/10/20
--- OUTSIDE RECORDS SUMMARY | 2024-08-25 09:43 | XMS_ITS | Clinical Summary ---
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 There are [...] compared to prior imaging studies performed at [facility] on 08/10/2020, 09/24/2021 and 10/06/2022. There are [...] Most Recently Relevant to Health Maintenance Insurance [employer] MEDICARE AETNA MEDICARE Care Teams Assistant Manager Retail Relationship Specialty Start Date End Date Jodie Caruso MD [address] [place] [address] PCP - General Internal Medicine 11/11/17 Montserrat Ernandez NP [address] [facility] DIV IM MEDICAL ONCOLOGY, [address] [place] [address] Nurse Practitioner Medical Oncology 08/10/20
== END 2024-08-25 09:34 | disposition home or self-care (01) ==
LOC: CHSIMG 09:35
PROVIDERS: PCP Internal Medicine; Visit Provider Internal Medicine
DX: S06.0X9A Concussion with loss of consciousness of unspecified duration, initial encounter (principal); S00.03XA Contusion of scalp, initial encounter
CPT/HCPCS: 70450

== ENCOUNTER 2025-02-07 10:19 | Outpatient (CLI) | payer MEDICARE, SELFPAY ==
--- NOTE | ~2025-02-07 | CT_ITS ---
CT Scan of the Chest without Contrast: Clinical Indication: Pulmonary nodule Technique: Contiguous sections were acquired throughout the chest without intravenous contrast. Dose reduction technique was used on this scan by utilizing automated exposure control and iterative recon struction technique. The dose-length product (DLP) was 414.29 mGy-cm. COMPARISON: 07/17/2022 Findings: There is no evidence of any significant mediastinal, hilar or axillary lymphadenopathy. The mediastin al soft tissues appear normal. There is no evidence of pleural or pericardial effusion. Stable focal peripheral airspace consolidation/opacity in the right upper lobe (axial image 47). Images through the upper abdomen reveal no abnormalities. Impression: Stable focal pleural-based airspace opacity or consolidation in the right upper lobe, as detailed abo ve. Reviewed, dictated and finalized at location . Impression: Stable focal pleural-based airspace opacity or consolidation in the right upper lobe, as detailed above.
--- OUTSIDE RECORDS SUMMARY | 2025-02-07 10:45 | XMS_ITS | Referral Summary ---
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 There are scattered areas of fibroglandular density. There are post breast conservation therapy changes in the left breast. Impression: Post breast conservation therapy changes in the left breast are benign. Annual screening mammography is recommended. OVERALL FINAL ASSESSMENT: BI-RADS CATEGORY 2: Benign. Procedure Note Zulema Lehmna MD - 10/22/2023 Mammogram Technique: Bilateral Digital Breast Tomosynthesis, Bilateral C-view 2D Screening mammogram. Views obtained: bilateral craniocaudal and bilateral mediolateral oblique. Computer Aided Detection was performed. Mammogram Findings: The present examination has been compared to prior imaging studies performed at [facility] on 08/10/2020, 09/24/2021 and 10/06/2022. There [...] Insurance T MEDICARE T MEDICARE Care Teams Electron Microscopist Relationship Specialty Start Date End Date Jodie Caruso MD [address] [place] [address] PCP - General Internal Medicine 11/11/17 Montserrat Ernandez NP [address] [facility] DIV IM MEDICAL ONCOLOGY, [address] [place] [address] Nurse Practitioner Medical Oncology 08/10/20
--- OUTSIDE RECORDS SUMMARY | 2025-02-07 10:45 | XMS_ITS | Clinical Summary ---
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 There [...] compared to prior imaging studies performed at [facility] on 08/10/2020, 09/24/2021 and 10/06/2022. There [...] Insurance AETNA MEDICARE AETNA MEDICARE Care Teams Android Framework Developer Relationship Specialty Start Date End Date Jodie Caruso MD [address] [place] [address] PCP - General Internal Medicine 11/11/17 Montserrat Ernandez NP [address] [facility] DIV IM MEDICAL ONCOLOGY, [address] [place] [address] Nurse Practitioner Medical Oncology 08/10/20
== END 2025-02-07 10:20 | disposition home or self-care (01) ==
LOC: CHSIMG 10:22
PROVIDERS: PCP Internal Medicine; Visit Provider Internal Medicine
DX: R91.1 Solitary pulmonary nodule (principal); R91.8 Other nonspecific abnormal finding of lung field
CPT/HCPCS: 71250

== ENCOUNTER 2025-02-20 11:51 | Outpatient (CLI) | payer MEDICARE, SELFPAY ==
--- NOTE | ~2025-02-20 | DEXA_ITS ---
Bone Density Report Name: ROBERT VERONICA Age: 74 Sex: Female Ethnicity: White Date of : 1950 Indication: osteopenia; parental hip fracture; height loss; cancer; hysterectomy; Referring Provider: Jodie Caruso Study: Bone densitometry was performed. Exam Date: February 20, 2025 Accession number: [id number] Bone Density: Region BMD T-score Z-score Classification AP Spine(L1-L4) 0.878 -1.5 0.7 Osteopenia Femoral Neck (Left) 0.845 0.0 1.9 Normal Total Hip (Left) 0.963 0.2 1.8 Normal Femoral Neck (Right) 0.787 -0.6 1.4 Normal Total Hip (Right) 0.951 0.1 1.7 Normal Femoral Neck Mean 0.816 -0.3 1.6 Normal Total Hip Mean 0.957 0.1 1.8 Normal World Health Organization criteria for BMD impression classify patients as: Normal (T-score at or above -1.0), Osteopenia (T-score between -1.0 and -2.5), or Osteoporosis (T-score at or below -2.5). 10-year Fracture Risk(1): Major Osteoporotic Fracture 12% Hip Fracture 2.2% Reported Risk Factors: [place] (), Neck BMD=0.787, BMI=31.9, parental fracture (1) FRAX(R) Version 3.08. Fracture probability calculated for an untreated patient. Fracture probability may be lower if the patient has received treatment. Previous Exams: Region Exam Age BMD T-score BMD Change BMD Change Date g/cm2 vs Baseline vs Previous AP Spine (L1-L4) 02/20/2025 74 0.878 -1.5 -0.011 (-1.2%) -0.011 (-1.2%) 08/22/2022 71 0.888 -1.4 Total Hip(Left) 02/20/2025 74 0.963 0.2 0.002 (0.2%) 0.002 (0.2%) 08/22/2022 71 0.961 0.2 Total Hip(Right) 02/20/2025 74 0.951 0.1 -0.013 (-1.3%) -0.013 (-1.3%) 08/22/2022 71 0.964 0.2 *Denotes significance at 95% confidence level, LSC for AP Spine = 0.022 g/cm2, LSC for Total Hip = 0.027 g/cm2 Clinical Information Provided by Patient: Parent has had a hip fracture Has used the following medications: Vitamin D, MULTI, B12 Has the following medical conditions: Cancer, Hysterectomy Patient maximum height was 65 Menopause Age: 49 No regular weight bearing exercise Drinks caffeinated beverages Onset of menses at age 13 Number of children 2 Impression: The patient has low bone mass, based on the Total Spine T-score. The patient has risk factors, including: parental hip fracture. No significant bone loss was observed. Discussion: BONE DENSITY IS LOW AT ONE OR MORE SKELETAL SITES. This patient's lowest T-score is low at one or more skeletal sites. It meets the World Health Organization's (WHO) criteria for ?low bone mass? (T-score between -1.0 and -2.5). The patient's 10-year risk of fracture as calculated by FRAX is less than the threshold where pharmacological therapy is recommended by the National Osteoporosis Foundation (NOF). However, all treatment decisions require clinical judgment and consideration of individual patient factors, including patient preferences, comorbidities, previous drug use, risk factors not captured in the FRAX model (e.g., frailty, falls, vitamin D deficiency, increased bone turnover, interval significant decline in bone density) and possible under or overestimation of fracture risk by FRAX. The patient should follow a healthful lifestyle (good nutrition with adequate calcium and vitamin D, and appropriate weight-bearing exercise). Follow-Up: Consider repeating this study in 2 to 3 years to reassess this patient's status, or sooner if there is some new clinical indication. Reported by: JOHN on 02/20/2025 12:38:00 PM. Reviewed, dictated and finalized at location A.
--- OUTSIDE RECORDS SUMMARY | 2025-02-20 13:01 | XMS_ITS | Clinical Summary ---
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 There are [...] compared to prior imaging studies performed at [facility] on 08/10/2020, 09/24/2021 and 10/06/2022. There are [...] Insurance AETNA MEDICARE AETNA MEDICARE Care Teams Pododermatologist Relationship Specialty Start Date End Date Jodie Caruso MD [address] [place] [address] PCP - General Internal Medicine 11/11/17 Montserrat Ernandez NP [address] [facility] DIV IM MEDICAL ONCOLOGY, [address] [place] [address] Nurse Practitioner Medical Oncology 08/10/20
== END 2025-02-20 11:52 | disposition home or self-care (01) ==
LOC: CHSIMG 11:52
PROVIDERS: PCP Internal Medicine; Visit Provider Internal Medicine
DX: Z78.0 Asymptomatic menopausal state (principal); M85.88 Other specified disorders of bone density and structure, other site
CPT/HCPCS: 77080